=== PATIENT | female | born 1980 | race Caucasian/White ===

== ENCOUNTER → 2023-10-11 07:05 | Outpatient (REF) | payer OTHER, SELFPAY | LOC: HWRAD 07:05 | PROVIDERS: ATTENDING PHYSICIAN Internal Medicine | DX: M85.80 Other specified disorders of bone density and structure, unspecified site (principal); Z12.31 Encounter for screening mammogram for malignant neoplasm of breast | CPT/HCPCS: 77063; 77067; 77080 ==

== ENCOUNTER → 2024-10-18 14:08 | Outpatient (REF) | payer OTHER, SELFPAY | LOC: HWWDC 14:08 | PROVIDERS: ATTENDING PHYSICIAN Internal Medicine | DX: Z12.31 Encounter for screening mammogram for malignant neoplasm of breast (principal) | CPT/HCPCS: 77063; 77067 ==